=== PATIENT | female | born 1985 ===

== ENCOUNTER 2020-10-26 04:40 | Inpatient (IN) ==
[2020-10-26] MEDS ORDERED: OXYTOCIN 30 UNITS/500 ML BAG IV PRN ×2 (06:17→15:22)
[2020-10-26 06:46] LABS: Hematocrit (blood only) 37.1 % (37-47); Hemoglobin 12.9 g/dL (12.0-16.0); Mean Corpuscular Hemoglobin 30.8 pg (25-34); Mean Corpuscular Hgb Conc 34.8 g/dL (32-36); Mean Corpuscular Volume 88.5 fL (80-100); Platelet Count 233 K/uL (130-400); RDW Coefficient of Variation 13.7 % (11.5-14.5); RDW Standard Deviation 44.6 fL (36.4-46.3); Red Blood Count 4.19 M/uL (4.2-5.4); White Blood Count 14.37 K/uL (4.8-10.8)
[2020-10-26] MEDS ORDERED: BUPIVACAINE 0.25% 30 ML VIAL ONE (06:56)
[2020-10-26] MEDS ORDERED: ePHEDrine sulfate 50 MG/ML AMP ONE (06:56)
[2020-10-26] MEDS ORDERED: SODIUM CHLORIDE 0.9% INJ 10 ML VIAL ONE (06:56)
[2020-10-26] MEDS ORDERED: fentaNYL 2MCG/ML ROPIVACAINE 1.25MG/ML 100 ML BAG EPI ONE (06:57)
[2020-10-26] MEDS ORDERED: fentaNYL citrate 100 MCG/2 ML VIAL ONE ×2 (06:57→11:21)
[2020-10-26] MEDS: LACTATED RINGER'S 1,000 ML IV PRN ×2 (06:58→09:03)
[2020-10-26 07:13] LABS: Albumin Level 3.3 gm/dl (3.4-5.0); Calcium 10.2 mg/dl (8.5-10.1); Creatinine Clr Calc Pharmacy 136.3 ml/min; Est GFR (African American) 129.7; Est GFR (Non-African American) 111.9; Potassium 3.6 mmol/L (3.5-5.1)
[2020-10-26 07:16] LABS: Albumin Globulin Ratio 0.7 (0.9-2); Bilirubin,Total 0.4 mg/dl (0.2-1); Globulin 4.5 gm/dl (2.5-4.0); Total Protein 7.8 gm/dl (6.4-8.2)
[2020-10-26] MEDS ORDERED: diphenhydrAMINE 50 MG/ML VIAL IV PRN (07:20)
[2020-10-26] MEDS ORDERED: NALOXONE HCL 1 MG in SODIUM CHLORIDE 0.9% 1000ML 1,000 ML IV PRN (07:20)
[2020-10-26] MEDS ORDERED: ONDANSETRON INJ 2 MG/ML 2 ML VIAL IV PRN (07:20)
[2020-10-26] MEDS ORDERED: ePHEDrine sulfate 50 MG/ML AMP IV PRN (07:20)
[2020-10-26] MEDS ORDERED: NALOXONE HCL 0.4 MG/1 ML VIAL/CARP IV PRN (07:20)
[2020-10-26] MEDS ORDERED: PROMETHAZINE HCL 25 MG in SODIUM CHLORIDE 0.9% 50 ML IV PRN (07:20)
--- NOTE | 2020-10-26 07:20 | Anesthesiology Consultation ---
Date of Service October 26, 2020 Assessment & Plan ASA ASA2 Proposed Anesthesia Anesthesia Type: Labor Epidural Risk / Benefits Reviewed With: PT / POA / Parent / Guardian, Accepts Plan and Informed Consent Obtained History Height/Weight Height: 5 ft 6 in Weight: 102.512 kg Allergies Allergy/AdvReac Type Severity Reaction Status Date / Time No Known Allergies Allergy Verified 10/17/20 09:06 Medications Home Medications Medication Instructions Recorded Confirmed Last Taken lactobacillus combination no.8 PO 04/19/20 10/17/20 Unknown prenat.vits,blanco,[id number] 1 tab PO DAILY 04/19/20 10/17/20 Unknown Active Medications Generic Name Dose Route Start Last Admin Trade Name Freq PRN Reason Stop Dose Admin Lactated Ringer's 1,000 mls @ 125 mls/hr 10/26/20 06:17 10/26/20 06:58 Lr IV 10/28/20 06:16 999 mls/hr .Q8H PRN Administration L&D Protocol Protocol Past Medical History Medical History Breast cancer right breast, neg lymph nodes, no further treatment Breast lump History of chicken pox Exercise / Class Metabolic Activity II 4-5 Yardwork/Stairs/Walk up hill Past Surgical History Surgical History S/P breast lumpectomy Past Anesthesia History No Hx of Anesthesia Complications and No Family Hx of Anesthesia Complications History of PONV No Hx of PONV and No Hx of Motion Sickness Social History Smoking Status: Never smoker Hx Alcohol Use: No Hx Substance Use: No Review of Systems denies fever/cough/ colds/ chest pain/ SOB/ JAYLEN denies JAYLEN Physical Exam Vital Signs Last Vital Signs Temp 36.5 C 10/26/20 04:55 Pulse 94 H 10/26/20 07:54 Resp 22 10/26/20 04:55 BP 141/84 H 10/26/20 07:52 Pulse Ox 94 10/26/20 07:54 ENMT Mouth: no TMJ abnormality and no dentition abnormality Thyromental Distance: > or= 3.5 Finger Breadths Mallampati Class: II Neck neck extension not limited Respiratory normal respiratory effort; no respiratory distress Auscultation: lungs clear to auscultation bilaterally Cardiovascular Rate/Rhythm: regular rate and regular rhythm Neurologic moves all extremities Psychiatric Orientation: alert and oriented x 3 Testing Laboratory Results 10/26/20 06:30 10/26/20 06:30
--- NOTE | 2020-10-26 07:54 | History & Physical Report ---
Date of Service October 26, 2020 Assessment & Plan (1) 39 weeks gestation of : (2) Active labor at term: pt has been admitted. labs reviewed. watch bps. ? gest htn. fhts categ 1. good progress. Admission and Anticipated Discharge Date Admission Date: October 26, 2020 History of Present Illness Chief Complaint: regular ctx Primary Care Provider: NO PCP 35yo at 39+wks jose presents to L&D with above cc. Had called earlier in evening with ? rom but on arrival ctx were regular. She changed from 1 to 3cm within one hour and having alot of pain. Desired epidural and admitted with labor. Now more comfortable but not complete relief. Elevated bps on her arrival but was in alot of pain. No vb. +FM PNC c/b 1. h/o breast cancer s/p lumpectomy PNL rh pos, ri, gbs neg, covid rapid today neg. Allergies Allergy/AdvReac Type Severity Reaction Status Date / Time No Known Allergies Allergy Verified 10/17/20 09:06 Home Medications Medication Instructions Recorded Confirmed Type lactobacillus combination no.8 PO 04/19/20 10/17/20 History prenat.vits,blanco,[id number]-[id number]-[id number] 1 tab PO DAILY 04/19/20 10/17/20 History Patient History Medical History Breast cancer right breast, neg lymph nodes, no further treatment Breast lump History of chicken pox Surgical History S/P breast lumpectomy Social History (Updated 04/19/20 @ 09:03 by Vaishali Florentino) Smoking Status: Never smoker Hx Alcohol Use: No Hx Substance Use: No Preferred Language: Welsh Beliefs That Will Affect Care: None marital status: marital status details: Víctor Bermudez (35) [phone] Current Living Situation: Spouse Current Living Situation Comment: lives with spouse, dog current occupational status: employed 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 no ruq pain, her swelling in LE same for about 3wks. Physical Exam Constitutional: WD/WN, vitals as above (urine dip neg protein) Respiratory: normal respiratory effort, lungs clear to auscultation Cardiovascular: Rate/Rhythm: regular rate and regular rhythm Gastrointestinal (Abdomen): soft gravid nt Musculoskeletal: +1 edema nontender calves Neurologic: grossly normal Psychiatric: A+Ox3, euthymic affect Genitourinary: OB Exam Abdomen: + estimated weight (8#) Manual OB Exam: + cervical dilation (7), + cervical effacement 100%, + station 0 and + amniotic fluid (No palp membrane, suspect srom at 11pm last night) OB Exam Monitor Tracing: + external FHT monitor used (125 mod variability, ), + external uterine monitor used (q2-3), + category I and + normal FHT variability Results & Data ([facility]) Vital Signs (Past 12 Hours) Vital Signs Temp Pulse Resp BP Pulse Ox 10/26/20 07:50 78 139/89 100 10/26/20 07:48 72 143/92 H 10/26/20 07:46 73 138/86 10/26/20 07:45 79 99 10/26/20 07:44 79 136/85 10/26/20 07:42 82 143/89 H 10/26/20 07:40 75 145/91 H 98 10/26/20 07:38 73 146/85 H 10/26/20 07:36 80 151/87 H 10/26/20 07:35 81 99 10/26/20 07:34 78 155/93 H 10/26/20 07:32 83 167/101 H 10/26/20 07:30 83 100 10/26/20 07:28 76 169/96 H 10/26/20 07:25 86 99 10/26/20 05:10 72 153/89 H 10/26/20 04:55 97.7 F 22 10/26/20 04:53 78 158/100 H Coding Level of Care Code None Diagnoses 39 weeks gestation of Z3A.39 Active labor at term
[2020-10-26] MEDS ORDERED: CALCIUM CARBONATE 500 MG CHEWABLE TAB PO PRN (09:27)
[2020-10-26] MEDS: fentaNYL 2MCG/ML ROPIVACAINE 1.25MG/ML 100 ML BAG EPI PRN ×2 (10:47→13:15)
[2020-10-26] MEDS ORDERED: ROPIVACAINE 0.5% 5 MG/ML 30 ML VIAL ONE (11:21)
--- NOTE | 2020-10-26 11:27 | Communication Note ---
Date of Service: October 26, 2020 pt redosed with 100 mcg fentanyl and 5 ml 0.5% ropivicaine
--- NOTE | 2020-10-26 15:06 | Delivery Summary ---
Vaginal Delivery Summary Date of Service October 26, 2020 Spontaneous vaginal delivery on patient who had rupture membranes earlier in the evening was managed by Dr. Sam at 8:30 AM and was signed over at that time she progressed to 7 cm then she rapidly progressed to 9 cm she progressed to fully dilated and was starting to push it was uncomfortable we increased her epidural and she rested and then was able to push again pushed effectively delivering a baby in left occiput anterior position no nuchal cord there was thin meconium b ulb suction used to suction the mouth and then nares at the delivery of the head gentle traction use no excessive force live vigorous male infant cord clamped and cut cord gases obtained cord blood obtained placenta removed with gentle traction first-degree tear repaired with 3-0 Vicryl after placenta was removed IV Pitocin was started hemostasis improved and uterine tone improved 150 mL blood loss uterus sponge and instrument counts correct [facility] Vaginal Delivery Charge Vaginal Delivery Codes: 43487 global code for the antepartum, delivery, and post- (1st degree tear) Procedure Anesthesia type: Epidural
[2020-10-26] MEDS ORDERED: DIPHTHERIA/TETANUS/PERTUSSIS 0.5 ML SYR/VIAL IM ONE (15:22)
[2020-10-26] MEDS ORDERED: SUPERCREAM 0.870% 15 GM JAR EXT PRN (15:22)
[2020-10-26] MEDS ORDERED: bisacodyL 10 MG SUPP PR PRN (15:22)
[2020-10-26] MEDS ORDERED: HYDROCORTISONE ACETATE 25 MG SUPP PR PRN (15:22)
[2020-10-26] MEDS ORDERED: BENZOCAINE 20% AER SPR 82.5 GM CAN EXT PRN (15:22)
[2020-10-26] MEDS ORDERED: oxyCODONE/ACETAMINOPHEN 5mg/325mg TAB PO PRN (15:22)
--- NOTE | 2020-10-26 15:30 | Anesthesiology Progress Note ---
Date of Service October 26, 2020 Anesthesia Post Procedure Vital Signs Vital Signs: Temp Pulse Resp BP Pulse Ox 10/26/20 15:25 100 H 155/80 H 10/26/20 15:20 18 10/26/20 15:09 101 H 153/99 H 10/26/20 15:05 18 10/26/20 14:55 117 H 88 L 10/26/20 14:50 143 H 93 10/26/20 14:45 116 H 70 L 10/26/20 14:41 131 H 85 L 10/26/20 14:40 136 H 146/86 H 98 10/26/20 14:35 138 H 97 10/26/20 14:30 108 H 95 10/26/20 14:27 110 H 90 10/26/20 14:26 115 H 174/114 H 10/26/20 14:25 116 H 98 10/26/20 14:22 103 H 175/86 H 10/26/20 14:20 108 H 99 10/26/20 14:15 114 H 98 10/26/20 14:10 112 H 168/89 H 98 10/26/20 14:05 137 H 97 10/26/20 14:00 105 H 160/89 H 98 10/26/20 13:56 138 H 93 10/26/20 13:55 137 H 173/108 H 94 10/26/20 13:50 134 H 93 10/26/20 13:45 156 H 95 10/26/20 13:40 100 H 144/73 H 96 10/26/20 13:35 129 H 98 10/26/20 13:30 90 99 10/26/20 13:25 96 H 99 10/26/20 13:20 99 H 99 10/26/20 13:15 94 H 99 10/26/20 13:12 36.6 C 20 10/26/20 13:10 109 H 99 10/26/20 13:05 98 H 99 10/26/20 13:00 97 H 99 10/26/20 12:55 85 100 10/26/20 12:50 98 H 100 10/26/20 12:45 78 99 10/26/20 12:40 72 99 10/26/20 12:35 83 99 10/26/20 12:30 75 100 10/26/20 12:25 114 H 100 10/26/20 12:22 36.9 C 18 10/26/20 12:21 105 H 90 10/26/20 12:20 93 H 98 10/26/20 12:15 84 98 10/26/20 12:10 116 H 130/78 98 10/26/20 12:05 110 H 99 10/26/20 12:00 105 H 99 10/26/20 11:55 107 H 137/73 98 10/26/20 11:50 112 H 99 10/26/20 11:45 112 H 99 10/26/20 11:41 102 H 140/97 10/26/20 11:40 94 H 99 10/26/20 11:35 88 99 10/26/20 11:34 111 H 151/80 H 10/26/20 11:32 113 H 93 10/26/20 11:30 91 H 99 10/26/20 11:25 91 H 173/94 H 98 10/26/20 11:23 94 H 92 10/26/20 11:20 79 97 10/26/20 11:17 36.9 C 10/26/20 11:15 86 99 10/26/20 11:10 75 151/84 H 96 10/26/20 11:08 85 93 10/26/20 11:05 72 98 10/26/20 11:00 88 18 98 10/26/20 10:57 91 H 92 10/26/20 10:55 78 134/99 98 10/26/20 10:50 88 98 10/26/20 10:49 99 H 93 10/26/20 10:45 89 98 10/26/20 10:43 94 H 87 L 10/26/20 10:41 81 156/94 H 10/26/20 10:40 82 98 10/26/20 10:35 95 H 98 10/26/20 10:30 86 99 10/26/20 10:25 85 138/74 97 10/26/20 10:20 82 99 10/26/20 10:15 80 97 10/26/20 10:11 77 18 141/78 H 10/26/20 10:10 83 138/73 98 10/26/20 10:05 80 98 10/26/20 10:00 87 99 10/26/20 09:56 83 135/74 10/26/20 09:55 87 100 12/19/20 09:50 82 99 19/20 09:45 74 98 10/26/20 09:40 72 136/76 97 10/26/20 09:35 87 99 10/26/20 09:30 85 99 10/26/20 09:25 75 98 10/26/20 09:24 80 140/69 10/26/20 09:20 78 98 20 09:15 81 99 20 09:11 69 18 134/68 10/26/20 09:10 74 100 10/26/20 09:05 85 100 10/26/20 09:01 36.9 C 20 10/26/20 09:00 99 H 100 10/26/20 08:55 95 H 100 10/26/20 08:50 84 150/89 H 100 20 08:45 83 147/78 H 99 10/26/20 08:41 80 153/88 H 10/26/20 08:40 82 100 20 08:35 73 151/82 H 100 20 08:30 78 100 20 08:28 74 154/84 H 20 08:26 72 154/81 H 10/26/20 08:25 80 100 10/26/20 08:24 78 18 140/87 20 08:22 77 18 149/87 H 20 08:20 68 18 150/84 H 100 20 08:18 76 18 156/88 H 20 08:16 92 H 18 154/86 H 20 08:15 83 100 20 08:14 74 18 149/83 H 20 08:12 82 18 147/81 H 20 08:10 76 143/72 H 100 10/26/20 08:08 75 151/79 H 20 08:07 89 163/82 H 20 08:05 81 18 147/86 H 98 20 08:00 87 18 134/85 98 20 07:55 83 100 20 07:54 94 H 18 135/93 94 20 07:52 75 141/84 H 20 07:50 78 139/89 100 10/26/20 07:48 72 143/92 H 10/26/20 07:46 73 138/86 10/26/20 07:45 79 99 10/26/20 07:44 79 20 136/85 10/26/20 07:42 82 143/89 H 10/26/20 07:40 75 20 145/91 H 98 10/26/20 07:38 73 146/85 H 10/26/20 07:36 80 20 151/87 H 10/26/20 07:35 81 99 10/26/20 07:34 36.8 C 78 20 155/93 H 10/26/20 07:32 83 167/101 H 10/26/20 07:30 83 100 10/26/20 07:28 76 169/96 H 10/26/20 07:25 86 99 10/26/20 05:10 72 153/89 H 10/26/20 04:55 36.5 C 22 10/26/20 04:53 78 158/100 H Pain Intensity Bilateral Abdomen: Pain Intensity: 0 Transfer of Care Handoff Completed per policy Notes Mental Status: alert / awake / arousable and participated in evaluation Patient Amnestic to Procedure: Yes Nausea / Vomiting: adequately controlled Pain: adequately controlled Airway Patency, RR, SpO2: stable & adequate BP & HR: stable & adequate Hydration State: stable & adequate Anesthetic Complications: no major complications apparent and Pt Satisfied with anesthetic care
[2020-10-26 15:34] LABS: Base Excess Cord Arterial Bld -4.5 mEq/L (-9-1.8); CO2 Cord Arterial Blood 62 mmHg (39.1-73.5); HCO3 Cord Arterial Blood 25 mmol/L (19.7-28.5); PO2 Cord Arterial Blood 17 mmHg (4.1-31.7); pH Cord Arterial Blood 7.22 (7.1-7.38)
[2020-10-26 15:36] LABS: Oxygen Sat Cord Arterial Blood < 60.0 % (<60)
[2020-10-26 15:37] LABS: Base Excess Cord Venous Blood -4.3 mEq/L (-7.7-1.9); Cord Venous Blood HCO3 22 mmol/L (18.4-26.8); Cord Venous Blood PCO2 44 mmHg (30.4-57.2); Cord Venous Blood PO2 29 mmHg (14.1-43.3); Cord Venous Blood pH 7.32 (7.20-7.44); O2 Saturation Cord Venous Bld < 60.0 % (<68)
[2020-10-26] MEDS: IBUPROFEN 600 MG TAB PO PRN ×2 (15:52→23:37)
[2020-10-26] MEDS: DOCUSATE SODIUM 100 MG CAP PO SCH (20:40)
[2020-10-27] MEDS: IBUPROFEN 600 MG TAB PO PRN ×5 (04:02→20:43)
[2020-10-27] MEDS: ACETAMINOPHEN 325 MG TAB PO PRN ×2 (06:33→23:31)
--- NOTE | 2020-10-27 08:04 | Obstetrical Progress Note ---
Date of Service October 27, 2020 Assessment & Plan (1) state: continue current care Subjective Ambulation: ambulating normally Voiding: no voiding problems Diet Tolerance:: regular diet Lochia:: Small Feeding Type:: breast feeding Current Pain Level(1-10): 2 Physical Exam Constitutional WD/WN, vitals as above (No ext tenderness) Results & Data ([facility]) Vital Signs (Past 12 Hours) Vital Signs Temp Pulse Resp BP Pulse Ox 10/27/20 07:40 97.7 F 90 20 138/88 95 10/27/20 03:30 97.5 F L 88 16 136/88 97 10/26/20 23:20 98.2 F 87 16 146/91 H 97 10/26/20 20:10 98.1 F 100 H 16 148/92 H 98
[2020-10-27] MEDS: PRENATAL VITAMIN 1 TAB PO SCH (08:07)
[2020-10-27] MEDS: DOCUSATE SODIUM 100 MG CAP PO SCH ×2 (08:07→20:43)
[2020-10-27] MEDS ORDERED: bisacodyL 5 MG TABEC PO SCH (20:00)
[2020-10-28] MEDS: IBUPROFEN 600 MG TAB PO PRN (04:50)
--- NOTE | 2020-10-28 06:03 | Obstetrical Progress Note ---
Date of Service October 28, 2020 Assessment & Plan (1) state: 35 y/o s/p SVC at 39w on 10/26/20, PPD2. A+. Rubella immune. Stable. - meeting milestones. ambulating, eating, voiding, +BM. - pain controlled w/ Tylenol and ibuprofen - Hb 12.9->9.4, reasonable - - elevated BPs during beginning of admission that improved after delivery. Normal BPs during outpatient visits. - 24 hour BPs ok w/ exception of 94 diastolic x1. Most recent BP 123/82. Mild headache similar to patient's usual headaches and is improving. No other symptoms. - dispo today. 1 wk BP check. (2) Breast cancer: - hx of breast cancer of right breast, s/p lumpectomy, neg lymph nodes - no further treatment Subjective Ambulation: ambulating normally Voiding: no voiding problems Passing Gas:: Yes Diet Tolerance:: regular diet Lochia:: Small Feeding Type:: breast feeding Doing well. pain is 1/10 severity, alleviated by tylenol and ibuprofen. Mild 3-4/10 intensity frontal headache last night, improved to 2/10 this morning. Feel similar to normal headaches. Denies visual changes, dizziness, RUQ pain, nausea/vomiting. + BM. Feels ready for home. Review of Systems Denies fever, chills, sweats Denies shortness of breath, chest pain, palpitations. Denies breast pain. Denies dysuria. Denies changes in vision or dizziness. Denies nausea/vomiting. Denies RUQ or abd pain. Denies numbness, tingling, weakness. Physical Exam General: Alert, oriented. No acute distress. Cardiac: Regular rate and rhythm, no murmurs/rubs/gallops. Respiratory: Clear to auscultation bilaterally, no wheezes/rales/rhonchi. No respiratory distress. Abdomen: , soft, nontender. Uterus: Uterine fundus firm, palpable 2cm below umbilicus. Lower Extremities: 1+ bilateral lower extremity edema. No deep calf pain. June's negative bilaterally. Results & Data ([facility]) Vital Signs (Past 12 Hours) Vital Signs Temp Pulse Resp BP Pulse Ox 10/28/20 04:20 37.2 C 93 H 16 123/82 98 10/27/20 23:25 36.8 C 81 16 125/86 97 10/27/20 19:30 36.6 C 87 18 132/94 Medications Administered Resident Activity Tracking Resident Involvement: Resident Care Provided Care Provided: OB Delivery
[2020-10-28 06:40] LABS: Hematocrit (blood only) 27.8 % (37-47); Hemoglobin 9.4 g/dL (12.0-16.0)
[2020-10-28] MEDS: PRENATAL VITAMIN 1 TAB PO SCH (08:22)
[2020-10-28] MEDS: DOCUSATE SODIUM 100 MG CAP PO SCH (08:22)
== END 2020-10-28 11:00 | disposition home or self-care (01) | DRG 807 ==
LOC: OPB 04:40 → 4S1 04:46 → 4S2 17:42